=== PATIENT | female | born 1990 | race Caucasian/White ===

== ENCOUNTER 2018-02-07 12:20 | Emergency (ER) | payer MEDICAID ==
[~2018-02-07] VITALS: Ht 160 cm; Wt 68.0 kg
[2018-02-07 12:48] LABS: BASOPHILS # (AUTO) 0.05 x10^3/uL (0-0.1); BASOPHILS % (AUTO) 1 % (0-1); EOSINOPHILS # (AUTO) 0.08 x10^3/uL (0-0.4); EOSINOPHILS % (AUTO) 1 % (1-7); LYMPHOCYTES # (AUTO) 2.96 x10^3/uL (1-3.4); LYMPHOCYTES % (AUTO) 35 % (22-44); MD NO; MEAN CORPUSCULAR HEMOGLOBIN 32.4 pg (27.0-34.8); MEAN CORPUSCULAR HGB CONC 34.3 g/dL (32.4-35.8); MEAN CORPUSCULAR VOLUME 94.6 fL (80-100); MEAN PLATELET VOLUME 7.9 fL (7.4-10.4); MONOCYTES # (AUTO) 0.54 x10^3/uL (0.2-0.8); MONOCYTES % (AUTO) 6 % (2-9); NEUTROPHILS % (AUTO) 57 % (42-75); PLATELET COUNT 307 x10^3/uL (130-400); RED CELL DISTRIBUTION WIDTH 13.1 % (9.6-15.2)
[2018-02-07 13:00] LABS: ALBUMIN 4.5 g/dL (3.4-5.0); ANION GAP 10 mmol/L (5-15); CALCIUM 9.1 mg/dL (8.5-10.1); CHLORIDE 103 mmol/L (98-107); CREATININE 1.04 mg/dL (0.55-1.02)
[2018-02-07] MEDS ORDERED: SODIUM CHLORIDE 0.9% 1,000ML IVBOLUS ONE (13:00)
[2018-02-07] MEDS ORDERED: SODIUM CHLORIDE FLUSH 10ML SYR IVF ONE (13:00)
[2018-02-07] MEDS ORDERED: PLEASE ENTER ALLERGIES MC SCH (13:00)
[2018-02-07] MEDS ORDERED: DIPHENHYDRAMINE 50 MG/ML, 1ML ONE (14:09)
[2018-02-07] MEDS ORDERED: METOCLOPRAMIDE 5 MG/ML, 2ML ONE (14:09)
[2018-02-07] MEDS ORDERED: DIPHENHYDRAMINE 50 MG/ML, 1ML IVPush ONE (14:30)
[2018-02-07] MEDS ORDERED: METOCLOPRAMIDE 5 MG/ML, 2ML IVPush ONE (14:30)
[2018-02-07 15:14] LABS: MICROSCOPIC NOT IND
[2018-02-07 15:18] LABS: CULTURE INDICATED? NO
[2018-02-07 16:10] VITALS: BP 112/65
== END 2018-02-07 16:13 | disposition home or self-care (01) ==
LOC: ED 15:19
DX: R11.2 Nausea with vomiting, unspecified (principal); F17.200 Nicotine dependence, unspecified, uncomplicated
CPT/HCPCS: 36415; 80048; 81003; 82040; 83735; 85025; 93005; 96361; 96374; 96375; 99285; J1200; J2765; J7030